=== PATIENT | male | born 1960 | race Caucasian/White ===

== ENCOUNTER → 2020-11-08 | Outpatient (CLI) | payer OTHER ==
[~2020-11-08] MED LIST: ASPI-696 PO; BACL-19 PO; BUPR300T49 PO; BUPR522T; BUPR522T PO; CALC-570 PO; CHOL10003 PO; FEXO60TA24 PO; FLUT16SP24 NS; FURO-92 PO; HYDR1TAB53 PO; INSU1CAR IL; LEVE500T53 PO; LEVO125C2 PO; LEVO137T25 PO; LOSA25TA25; PANT40TA6 PO; POTA20TA14 PO; PRAV20TA PO; SILD100T PO; TAMS-11 PO; WARF5TAB2 PO; ZOLP12.52 PO
== END | disposition home or self-care (01) ==
LOC: STAR 10:35
PROVIDERS: ATTEND Anesthesiology
DX: Z01.818 Encounter for other preprocedural examination (principal); Z01.812 Encounter for preprocedural laboratory examination; Z01.89 Encounter for other specified special examinations; R79.1 Abnormal coagulation profile
CPT/HCPCS: 93005